=== PATIENT | male | born 1990 | race Caucasian/White ===

== ENCOUNTER 2017-06-24 19:36 | Emergency (ER) | payer OTHER ==
[~2017-06-24] VITALS: Ht 188 cm; Wt 89.4 kg
--- NOTE | ~2017-06-24 | EKG ---
[facility] [place] [address] ELECTROCARDIOGRAM REPORT Name: CORINNE LACEY Room #: DEP Davion#: [id number] Admission: 06/24/17 Attend Phys: Discharge: 06/24/17 Date of : 89 Report #: [id number] THIS REPORT FOR: //name// [facility] ED Test Date: 2017-06-24 Test Time: 20:00:30 Pat Name: CORINNE LACEY Department: Room: Gender: M [employer] Manager: DIGNA CHRISTIANSON : 1990 Requested By: Nikky Kennedy Order Number: [id number] MD: Logan Lopez Measurements Intervals [place] Rate: 54 P: 51 [place]: 166 QRS: 37 QRSD: 104 T: 31 QT: 426 QTc: 404 Interpretive Statements Sinus rhythm Multiform ventricular premature complexes No previous ECG available for comparison Electronically Signed On 06-26-2017 13:39:30 CDT by Logan Lopez [email or web address] <ELECTRONICALLY SIGNED> By: Logan Lopez MD, [facility] 06/26/17 1339 2000 99 Logan Lopez MD, FACC /EPI
[~2017-06-24 19:36] MED LIST: APAP/CODEI12 MG/5 ML PO; NOHOMEMEDICATIONS
[2017-06-24 20:02] LABS: ABSOLUTE NEUTROPHILS 3.4 thou/uL (1.4-8.2); EOSINOPHILS 2.5 % (0.0-3.0); HEMATOCRIT 43.8 % (42.0-52.0); HEMOGLOBIN 15.1 gm/dL (14.0-18.0); MCH 30.3 pg (26.0-34.0); MCHC 34.5 g/dL (28.0-37.0); MCV 87.9 fL (80.0-100.0); MONOCYTES 11.7 % (1.0-8.0); PLATELET COUNT 261 thou/uL (150-400); POLYS 43.8 % (36.0-66.0); RBC 4.98 mil/uL (4.50-6.00); WBC 7.9 thou/uL (4.0-11.0)
[2017-06-24 20:03] LABS: MANUAL DIFF NO
[2017-06-24 20:10] LABS: ANION GAP 10 mmol/L (7-16); BUN 10 mg/dL (7-18); CHLORIDE 103 mmol/L (98-107); CO2 28 mmol/L (21-32); GLUCOSE 86 mg/dL (74-106); POTASSIUM 3.2 mmol/L (3.5-5.1); SODIUM 141 mmol/L (136-145)
[2017-06-24 20:19] LABS: ALBUMIN 4.3 g/dL (3.4-5.0); ALKALINE PHOSPHATASE 110 U/L (46-116); SALICYLATE 3.9 mg/dL (2.8-20.0); SGOT 44 U/L (15-37); SGPT 46 U/L (30-65); TOTAL BILIRUBIN 0.6 mg/dL (<0.1-1.0); TOTAL PROTEIN 8.1 g/dL (6.4-8.2); TROPONIN-I < 0.04 ng/mL (<0.04-0.07)
[2017-06-24 20:32] LABS: ACETAMINOPHEN < 2 ug/mL (10-30)
[2017-06-24 21:35] LABS: URINE BILIRUBIN NEGATIVE (Negative); URINE BLOOD NEGATIVE (Negative); URINE COLOR YELLOW; URINE GLUCOSE-RANDOM* NEGATIVE (Negative); URINE KETONES NEGATIVE (Negative); URINE NITRITE NEGATIVE (Negative); URINE PROTEIN (DIPSTICK) TRACE (Negative); URINE SPECIFIC GRAVITY >= 1.030 (1.003-1.035); URINE UROBILINOGEN 0.2 E.U./dl (0.2-1.0)
[2017-06-24 21:42] LABS: AMP/METHAMP POSITIVE (Negative); BARBITURATES Negative (Negative); BENZODIAZEPINES Negative (Negative); COCAINE Negative (Negative); METHADONE Negative (Negative); OPIATES POSITIVE (Negative); PCP Negative (Negative); THC POSITIVE (Negative)
[2017-06-24 23:15] VITALS: BP 115/58
== END 2017-06-24 23:16 | disposition left against medical advice (07) ==
LOC: ER 19:36
PROVIDERS: Nurse Practitioner Family
DX: T40.2X1A Poisoning by other opioids, accidental (unintentional), initial encounter (principal); R00.1 Bradycardia, unspecified; E87.6 Hypokalemia; R09.02 Hypoxemia; F17.210 Nicotine dependence, cigarettes, uncomplicated; F10.99 Alcohol use, unspecified with unspecified alcohol-induced disorder; F11.10 Opioid abuse, uncomplicated; Y92.89 Other specified places as the place of occurrence of the external cause